=== PATIENT | male | born 1995 | race African-American/Black ===

== ENCOUNTER 2017-01-21 09:53 | Emergency (ER) | payer SELFPAY ==
[~2017-01-21] VITALS: Ht 177.8 cm; Wt 80.0 kg
[~2017-01-21 09:53] MED LIST: BACI500O9 TOP; IBUP-238 PO
[2017-01-21 09:55] VITALS: BP 120/69; PULSE 53; RESP 15; TEMP 98; O2SAT 98
[2017-01-21] MEDS ORDERED: cefTRIAXone 250 MG VIAL IM ONE (10:15)
[2017-01-21] MEDS ORDERED: LIDOCAINE HCL 1% 50 ML VIAL XX ONE (10:15)
[2017-01-21] MEDS ORDERED: AZITHROMYCIN PWD FOR SUSP 1 GM PACKET PO ONE (10:15)
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
[2017-01-21 10:52] LABS: BLOOD, URINE TRACE (NEG); GLUCOSE,URINE NEG (NEG); KETONE, URINE NEG (NEG); NITRITE,URINE NEG (NEG); URINE COLOR LIGHT-YELLOW (YELLW/STRAW)
[2017-01-21 10:53] LABS: BACTERIA, URINE OCC /hpf; COMMENT (UR) CULTURE INDICATED; CULTURE IF INDICATED CULTURE INDICATED
[2017-01-21] MEDS ORDERED: CEPH-460 PO (11:37)
[2017-01-21 17:55] LABS: CHLAMYDIA PCR DETECTED (NOT DETECT); NEISSERIA PCR DETECTED (NOT DETECT)
--- NOTE | 2017-01-23 14:58 | ED.CB ---
ED Call Back Communication Urine gonorrhea and chlamydia PCR came back positive. I spoke with patient yesterday morning to inform him of the results. Patient was already treated for both while in the ER. I advised him to stop cephalexin since his urine culture was negative x 24 hours. Gema Limon MD Jan 23, 2017 14:58
== END 2017-01-21 11:54 | disposition home or self-care (01) ==
LOC: NEPA 09:53
DX: A56.01 Chlamydial cystitis and urethritis (principal); A54.01 Gonococcal cystitis and urethritis, unspecified
CPT/HCPCS: 81001; 87086; 87491; 87591; 96372; 99284; J0696